=== PATIENT | female | born 1950 | race Caucasian/White ===

== ENCOUNTER 2017-04-14 14:04 | Emergency (ER) | payer OTHER ==
[2017-04-14 14:47] LABS: APPEARANCE HAZY (CLEAR); BILIRUBIN NEGATIVE (NEGATIVE); COLOR YELLOW (YELLOW); GLUCOSE NEGATIVE (NEGATIVE); KETONE NEGATIVE (NEGATIVE); NITRITE POSITIVE (NEGATIVE); PROTEIN 2+ mg/dL (NEGATIVE); SPECIFIC GRAVITY 1.015 (1.005-1.020); UROBILINOGEN NORMAL (NORMAL)
[2017-04-14 14:49] LABS: BACTERIA FEW /hpf (NONE SEEN); EPITHELIAL CELLS 0-5 /hpf (0-5); WHITE CELLS - URINE 25-50 /hpf (0-5)
== END 2017-04-14 15:19 | disposition home or self-care (01) ==
LOC: D.ER 14:04
PROVIDERS: Emergency Medicine
DX: N39.0 Urinary tract infection, site not specified (principal); K21.9 Gastro-esophageal reflux disease without esophagitis

== ENCOUNTER → 2017-04-19 14:35 | Outpatient (CLI) | payer MEDICARE | END | disposition home or self-care (01) | LOC: D.CT 14:35 | DX: R05 Cough (principal) ==

== ENCOUNTER → 2017-10-19 11:15 | Outpatient (CLI) | payer MEDICARE | LOC: D.MAMMO 11:15 | DX: Z12.31 Encounter for screening mammogram for malignant neoplasm of breast (principal) ==